=== PATIENT | male | born 1980 | race Caucasian/White ===

== ENCOUNTER 2018-12-21 22:18 | Observation (INO) | payer MEDICAID, SELFPAY ==
[2018-12-21 22:19] VITALS: BP 153/92; PULSE 79; RESP 16; TEMP 36.6; O2SAT 96; BMI 35.2
--- NOTE | 2018-12-21 22:27 | ED.VIS.GEN ---
History of Present Illness Chief Complaint: Substance Abuse Narrative: Patient presents with detox request. He stated that they are waiting for him to come. His last use of heroin was 30 hours ago. He also did methamphetamines 2 days ago. Patient feels like he is having some detox symptoms. He is having chills myalgia nausea and insomnia. He stated that they know about him. He has done this before. Current severity is moderate. Past Medical History - Allergies and Home Meds Allergies/Adverse Reactions: Allergies No Known Allergies Allergy (Verified 12/21/18 22:21) Prior records reviewed: Yes Past Medical History: - - Neuropathy, heroin abuse Lives: Spouse/ Significant Other Alcohol: None Drugs: None Review of Systems General: Denies: Chills, Fever, Sweats Eyes: Denies: Visual changes - bilaterally, Diplopia ENT: Denies: Rhinorrhea, Sore throat Cardiovascular: Denies: Chest pain, Palpitations Respiratory: Denies: Dyspnea, Cough, Dyspnea on exertion Gastrointestinal: Reports: Nausea. Denies: Abdominal pain, Vomiting, Diarrhea, Melena, Hematochezia Genitourinary: Denies: Dysuria, Hematuria, Frequency Musculoskeletal: Reports: Myalgias. Denies: Back pain, Extremity Pain Skin: Denies: Rash, Wounds Neurological: Denies: Headache, Weakness, Numbness Physical Exam Vital Signs/Narrative: Vital Signs Temp Pulse Resp BP Pulse Ox 12/21/18 22:19 97.8 F 79 16 153/92 H 96 General: Well nourished, Well developed, No Acute Distress Head: Normocephalic, Atraumatic Eyes: Perrl, EOMI ENT: Moist mucous membranes, No rhinorrhea Neck: Supple, Nontender Cardiovascular: Regular rate, Regular rhythm, No murmurs Respiratory: No distress, CTA bilaterally, Chest nontender Abdomen: Soft, Nontender, Nondistended, Normal bowel sounds Back: Nontender, Normal Inspection Extremities: Nontender, No edema Skin: Normal color, No rash Neurological: Alert, Oriented x3, Cranial nerves II-XII grossly intact, Normal Strength, Normal Sensation Psychological: Normal affect, Normal Mood Diagnostic/Tx/Re-eval - Medical Decision Making Lab work obtained. Patient will be admitted for further evaluation and treatment of his heroin abuse. Lab work shows a very slightly elevated AST and ALT. Urine tox shows positive opiates and amphetamines. Patient will be admitted for heroin detox. ED Disposition - Plan for ED Patient: Disposition: Home or Assisted Living Diagnosis: Narcotic withdrawal
[2018-12-21 22:59] LABS: Absolute Lymphocyte Count 3.05 X10^3/ul (0.83-4.51); Basophil# 0.01 X10^3/uL; Basophil% 0.1 % (0-1); Eosinophil# 0.14 X10^3/uL; Eosinophils% 1.6 % (0-5); Hematocrit 44.7 % (40-54); Hemoglobin 15.2 g/dl (13.0-16.5); Lymphocyte # 3.05 X10^3/ul (4.0); Lymphocyte % 34.7 % (19-41); Mean Corpuscular Hgb 28.7 pg (27.0-32.0); Mean Corpuscular Volume 84.3 fL (80-94); Mean Platelet Vol. 9.8 fl (6.2-12.0); Monocyte# 0.56 X10^3/uL; Monocyte% 6.4 % (0-10); Neutrophil # 5.03 X10^3/uL (2.7-7.7); Neutrophil % 57.1 % (47-70); Platelet Count 229 K/mm3 (150-450); RBC Distribution Width CV 12.9 % (11.6-14.6); RBC Distribution Width SD 39.3 fl (35.1-43.9); White Blood Count 8.8 K/mm3 (4.4-11.0)
[2018-12-21 23:00] LABS: POSITIVE COUNT NO; POSITIVE DIFFERENTIAL NO; POSITIVE MORPHOLOGY NO
[2018-12-21 23:14] LABS: Amphetamine Urine VISTA POSITIVE (<1000 ng/mL); Barbiturate Urine VISTA NEGATIVE (< 200 ng/mL); Benzodiazepine Urine VISTA NEGATIVE (< 200 ng/mL); Cocaine Urine VISTA NEGATIVE (< 300 ng/mL); Ecstacy Urine VISTA NEGATIVE (< 500 ng/mL); Methadone Urine VISTA NEGATIVE (< 300 ng/mL); PCP Urine VISTA NEGATIVE (< 25 ng/mL); THC Urine VISTA NEGATIVE (< 50 ng/mL); Vista UDS pH Range 6
[2018-12-21 23:15] LABS: AST(SGOT) 40 U/L (15-37); Alanine Aminotransfer ALT/SGPT 66 U/L (16-61); Albumin, Serum 3.7 g/dL (3.2-5.0); Alkaline Phosphatase 68 U/L (45-117); Anion Gap 4 (5-15); BUN 12 mg/dL (7-18); BUN/Creat Ratio 18.2 RATIO (10-20); Calcium,Total 8.4 mg/dL (8.5-10.1); Chloride 106 mmol/L (98-107); Creatinine, Serum 0.66 mg/dL (0.70-1.30); EST Glomerular Filtration Rate 143 mL/min (>60); Est Glom Filt Rate - Afr Amer 173 mL/min (>60); Estimated Creatinine Clearance 166.57 ml/min; Globulin 3.8 g/dL (2.2-4.2); Glucose 84 mg/dL (74-106); Potassium 3.8 mmol/L (3.5-5.1); Protein, Total 7.5 g/dL (6.4-8.2); Sodium Level 138 mmol/L (136-145)
[2018-12-21 23:30] LABS: Alcohol, Blood (Medical)-Serum < 3.0 mg/dL
--- NOTE | 2018-12-21 23:49 | HP.PCM_ITS ---
Problem List (1) Amphetamine abuse Status: Acute (2) Nicotine abuse Status: Chronic (3) Narcotic withdrawal Status: Acute History of Present Illness Date of Admission: 12/21/18 Chief Complaint: narcotic withdrawal The patient is a 38 year old male patient with a addiction to heroine presents to the ER requesting detoxification and assistance. He states he doesn't want to live like this any more. He has been through other detoxification programs previously , 1 month ago he resumed using heroine after not gaining admission to another detox program in [place]. He admits his last opiate use was yesterday afternoon and states he used meth 3 days ago. He smokes 1/2 PPD cigarettes and is requesting a nicotine patch. He is currently scoring a 17 on the CIWA score. Transaminases are slightly elevated but otherwise labs are unremarkable. He will be admitted for withdrawal symptoms and new vision consulted in am. Past Medical History Past Medical History (Chronic Problems): Chronic Problems Nicotine abuse (Chronic) Allergies No Known Allergies Allergy (Verified 12/21/18 22:21) Home Medications: Ambulatory Orders Medication Instructions Recorded Gabapentin [Neurontin] 600 mg PO TID 12/21/18 Surgical History: no surgical history Lives: Spouse/ Significant Other Smoking Status: Current every day smoker Alcohol: None Drugs: Heroin, - - amphetamine Review of Systems Constitutional: Denies: Chills, Fever, Weight Change HEENT: Denies: Head Aches, Sinus Congestion, Sinus Drainage Cardiovascular: Denies: Chest Pain, Palpitations Respiratory: Reports: Wheezing. Denies: Cough, Shortness of breath at rest, Sputum production Gastrointestinal: Denies: Abdominal Pain, Nausea, Vomiting Genitourinary: Denies: Dysuria Musculoskeletal: Denies: Joint Pain, Joint Tenderness Skin: Denies: Rash, Wounds Neurological: Reports: Tremor, - - psychmotor agitation. Denies: Focal weakne ss, Numbness, Tingling Psychiatric: Reports: Anxiety. Denies: Depression, Homicidal Ideations, Suicidal Ideations Hematologic/ Lymphatic: Denies: Easy Bruising, Easy Bleeding VTE Information - Inpt Only VTE Present on Admission: No VTE Mechan Device Prophylaxis: SCD's VTE Pharm Prophylaxis ordered?: No Patient Problems: Active and Suspected Problems Narcotic withdrawal (Acute) Amphetamine abuse (Acute) - Physical Exam General: Alert, Oriented x3, Cooperative HEENT: Atraumatic, Normocephalic Neck: Supple Lungs: Normal air movement, Wheezes Cardiovascular: Regular rate, Normal S1, Normal S2, No murmurs Abdomen: Bowel Sounds Present, Soft, Non Tender, Obese Extremities: No edema Skin: No rashes, No breakdown Musculoskeletal: No Tenderness to Palpation of Joints or Extremities Neurological: Neuro grossly intact Psych/Mental Status: Agitated, Anxious, Impulsive Vital Signs Temp Pulse Resp BP Pulse Ox 97.8 F 79 16 153/92 H 96 12/21/18 22:19 12/21/18 22:19 12/21/18 22:19 12/21/18 22:19 12/21/18 22:19 Oxygen Delivery Method Room Air Weight: 259 lb 11.272 oz Body Mass Index (BMI) 35.2 Laboratory Tests Past 24 Hrs 12/21/18 12/21/18 12/21/18 22:45 22:45 22:45 WBC 8.8 RBC 5.30 Hgb 15.2 Hct 44.7 MCV 84.3 MCH 28.7 MCHC 34.0 RDW 12.9 RDW Differential 39.3 Plt Count 229 MPV 9.8 Immature Gran % (Auto) 0.100 Neut % (Auto) 57.1 Lymph % (Auto) 34.7 [place] % (Auto) 6.4 Eos % (Auto) 1.6 Baso % (Auto) 0.1 Absolute Neuts (auto) 5.0 Absolute Lymphs (auto) 3.05 Total Counted Not Reportable Sodium 138 Potassium 3.8 Chloride 106 Carbon Dioxide 28.0 Anion Gap 4 L BUN 12 Creatinine 0.66 L Estim Creat Clear Calc 166.57 Est GFR (MDRD) Af Amer 173 Est GFR (MDRD) Non-Af 143 BUN/Creatinine Ratio 18.2 Glucose 84 Calcium 8.4 L Total Bilirubin 0.40 AST 40 H ALT 66 H Alkaline Phosphatase 68 Total Protein 7.5 Albumin 3.7 Globulin 3.8 Albumin/Globulin Ratio 1.0 Urine Opiates Screen Urine Methadone Screen Ur Barbiturates Screen Ur Phencyclidine Scrn Ur Amphetamines Screen U Methamphetamin-MDMA U Benzodiazepines Scrn Urine Cocaine Screen U Cannabinoids Screen Ur Drug Screen Comment Ethyl Alcohol < 3.0 12/21/18 22:45 WBC RBC Hgb Hct MCV MCH MCHC RDW RDW Differential Plt Count MPV Immature Gran % (Auto) Neut % (Auto) Lymph % (Auto) [place] % (Auto) Eos % (Auto) Baso % (Auto) Absolute Neuts (auto) Absolute Lymphs (auto) Total Counted Sodium Potassium Chloride Carbon Dioxide Anion Gap BUN Creatinine Estim Creat Clear Calc Est GFR (MDRD) Af Amer Est GFR (MDRD) Non-Af BUN/Creatinine Ratio Glucose Calcium Total Bilirubin AST ALT Alkaline Phosphatase Total Protein Albumin Globulin Albumin/Globulin Ratio Urine Opiates Screen POSITIVE H Urine Methadone Screen NEGATIVE Ur Barbiturates Screen NEGATIVE Ur Phencyclidine Scrn NEGATIVE Ur Amphetamines Screen POSITIVE H U Methamphetamin-MDMA NEGATIVE U Benzodiazepines Scrn NEGATIVE Urine Cocaine Screen NEGATIVE U Cannabinoids Screen NEGATIVE Ur Drug Screen Comment Ethyl Alcohol Assessment/Plan All Active Problems Narcotic withdrawal (Acute) Amphetamine abuse (Acute) Chronic Problems Nicotine abuse (Chronic) Plan 1. Heroine/amphetamine- abuse/withdrawal- admit to general medical floor. Initiate opiate withdrawal protocol, consult new vision in am 2. nicotine addiction-- 21mg NicoDerm patch q day 3. DVT prophylaxis-- SCDs Code Visit Inpatient E&M: 55725 Init Hosp L3
[2018-12-22] VITALS (8 sets, daily range): BP systolic 104–147; BP diastolic 62–92; PULSE 61–72; RESP 16–18; TEMP 36.4–36.8; O2SAT 97; BMI 34.9; BMI 35.0
[2018-12-22] MEDS: Buprenorphine HCl 2 MG TAB.SUBL SL ×3 (00:57→15:52)
[2018-12-22] MEDS: Pramipexole Di-HCl 0.25 MG Tablet PO (00:57)
[2018-12-22] MEDS: chlordiazePOXIDE 25 MG Capsule PO ×6 (00:57→20:13)
[2018-12-22] MEDS: cloNIDine HCl 0.1 MG Tablet PO ×3 (04:20→15:52)
[2018-12-22] MEDS: hydrOXYzine PAM 25 MG Capsule 50 MG PO ×2 (08:34→15:52)
[2018-12-22] MEDS: Methocarbamol 750 MG Tablet PO ×2 (08:34→15:52)
[2018-12-22] MEDS: Dicyclomine 10 MG Capsule 20 MG PO ×2 (08:34→15:52)
--- NOTE | 2018-12-22 10:53 | PCM.PN.HOSP ---
Patient Problems: Active and Suspected Problems Narcotic withdrawal (Acute) Amphetamine abuse (Acute) Subjective: Patient seen and examined. He was admitted for acute opiate withdrawal. He complains of abdominal pain due to cramping but denies any fever chills, palpitations or dizziness or tremors, diarrhea vomiting. Review of systems otherwise negative. Labs and vitals reviewed. Vitals/I&O's: Vital Signs Temp Pulse Resp BP Pulse Ox 97.6 F L 65 18 136/87 H 97 12/22/18 08:32 12/22/18 08:38 12/22/18 08:32 12/22/18 08:32 12/22/18 00:36 Oxygen Delivery Method Room Air Weight: 257 lb 15.053 oz Body Mass Index (BMI) 34.9 Intake and Output for Last 24 Hours 12/20/18 12/21/18 12/22/18 23:59 23:59 23:59 Intake Total 480 / 480 Balance 480 / 480 General: Alert, Oriented x3, Cooperative, No apparent distress HEENT: Atraumatic, PERRLA, EOMI, Normocephalic Oral: Moist Mucosa Neck: Supple, No JVD, Negative Carotid Bruits Lungs: Clear to auscultation, Normal air movement, No rhonchi, No wheeze, No rales Cardiovascular: Regular rate, Regular Rhythm, Normal S1, Normal S2, No murmurs Abdomen: Bowel Sounds Present, Soft, Non Tender, Non-Distended, No Hepato-splenomegaly Extremities: No clubbing, No cyanosis, No edema, Capillary Refill Less than 3 Seconds Skin: No rashes, No breakdown Musculoskeletal: No Tenderness to Palpation of Joints or Extremities Lymphatic: No Cervical, Supraclavicular, or Inguinal Adenopathy Neurological: Cranial nerves II-XII grossly intact, Neuro grossly intact, Motor Exam 5/5 strength throughout Psych/Mental Status: Normal Affect, Appropriate, Alert and oriented to time, place, person, mood and affect Laboratory Results 12/21/18 22:45: WBC 8.8, RBC 5.30, Hgb 15.2, Hct 44.7, MCV 84.3, MCH 28.7, MCHC 34.0, RDW 12.9, RDW Differential 39.3, Plt Count 229, MPV 9.8, Immature Gran % (Auto) 0.100, Neut % (Auto) 57.1, Lymph % (Auto) 34.7, [place] % (Auto) 6.4, Eos % (Auto) 1.6, Baso % (Auto) 0.1, Absolute Neuts (auto) 5.0, Absolute Lymphs (auto) 3.05, Total Counted Not Reportable 12/21/18 22:45: Sodium 138, Potassium 3.8, Chloride 106, Carbon Dioxide 28.0, Anion Gap 4 L, BUN 12, Creatinine 0.66 L, Estim Creat Clear Calc 166.57, Est GFR (MDRD) Af Amer 173, Est GFR (MDRD) Non-Af 143, BUN/Creatinine Ratio 18.2, Glucose 84, Calcium 8.4 L, Total Bilirubin 0.40, AST 40 H, ALT 66 H, Alkaline Phosphatase 68, Total Protein 7.5, Albumin 3.7, Globulin 3.8, Albumin/Globulin Ratio 1.0 12/21/18 22:45: Ethyl Alcohol < 3.0 12/21/18 22:45: Urine Opiates Screen POSITIVE H, Urine Methadone Screen NEGATIVE, Ur Barbiturates Screen NEGATIVE, Ur Phencyclidine Scrn NEGATIVE, Ur Amphetamines Screen POSITIVE H, U Methamphetamin-MDMA NEGATIVE, U Benzodiazepines Scrn NEGATIVE, Urine Cocaine Screen NEGATIVE, U Cannabinoids Screen NEGATIVE, Ur Drug Screen Comment Current Medications Buprenorphine HCl (Buprenorphine Hcl) 4 mg SL Q8H [facility]; Taper Stop: 12/25/18 04:16 Last Admin: 12/22/18 08:33 Dose: 4 mg Chlordiazepoxide (Librium) 25 mg PO Q6H PRN PRN PRN Reason: Moderate-Severe Anxiety Chlordiazepoxide (Librium) 25 mg PO Q4H [facility] Stop: 12/22/18 20:18 Last Admin: 12/22/18 08:34 Dose: 25 mg Clonidine (Catapres) 0.1 mg PO Q2H PRN PRN PRN Reason: Hot/Cold Sweats or Anxiety Last Admin: 12/22/18 08:35 Dose: 0.1 mg Dicyclomine HCl (Bentyl) 20 mg PO Q6H PRN PRN PRN Reason: Abdomnial Discomfort Last Admin: 12/22/18 08:34 Dose: 20 mg Hydroxyzine HCl (Vistaril Vial) 50 mg IM Q6H PRN PRN PRN Reason: Breakthrough Anxiety Hydroxyzine Pamoate (Vistaril Pamoate Capsule) 50 mg PO Q6H PRN PRN PRN Reason: Mild Anxiety Last Admin: 12/22/18 08:34 Dose: 50 mg Magnesium Hydroxide (Milk Of Magnesia) 30 ml PO DAILY PRN PRN PRN Reason: Constipation Methocarbamol (Methocarbamol) 750 mg PO Q6H PRN PRN PRN Reason: Muscle Aches Last Admin: 12/22/18 08:34 Dose: 750 mg Pramipexole Dihydrochloride (Mirapex) 0.25 mg PO Q12H PRN PRN PRN Reason: Restless Legs Last Admin: 12/22/18 00:57 Dose: 0.25 mg Medical Necessity - Tobacco Use Smoking Status: Current every day smoker Assessment/Plan All Active Problems Narcotic withdrawal (Acute) Amphetamine abuse (Acute) 1. Acute opiate withdrawal on opiate withdrawal protocol with buprenorphine, per [facility] protocol will monitor CINA score NEw vision on board; patient wishes to go to inpatient rehab facility once acute detox is over 2. Nicotine addiction: on nicotine patch 21mg daily. DVT prophylaxis; SCDs Code Visit Inpatient E&M: 00185 Subs Hosp L2
--- NOTE | 2018-12-22 10:58 | PN_ITS ---
Patient Problems: Active and Suspected Problems Narcotic withdrawal (Acute) Amphetamine abuse (Acute) Subjective: Patient seen and examined. He was admitted for acute opiate withdrawal. He complains of abdominal pain due to cramping but denies any fever chills, palpitations or dizziness or tremors, diarrhea vomiting. Review of systems otherwise negative. Labs and vitals reviewed. Vitals/I&O's: Vital Signs Temp Pulse Resp BP Pulse Ox 97.6 F L 65 18 136/87 H 97 12/22/18 08:32 12/22/18 08:38 12/22/18 08:32 12/22/18 08:32 12/22/18 00:36 Oxygen Delivery Method Room Air Weight: 257 lb 15.053 oz Body Mass Index (BMI) 34.9 Intake and Output for Last 24 Hours 12/20/18 12/21/18 12/22/18 23:59 23:59 23:59 Intake Total 480 / 480 Balance 480 / 480 General: Alert, Oriented x3, Cooperative, No apparent distress HEENT: Atraumatic, PERRLA, EOMI, Normocephalic Oral: Moist Mucosa Neck: Supple, No JVD, Negative Carotid Bruits Lungs: Clear to auscultation, Normal air movement, No rhonchi, No wheeze, No rales Cardiovascular: Regular rate, Regular Rhythm, Normal S1, Normal S2, No murmurs Abdomen: Bowel Sounds Present, Soft, Non Tender, Non-Distended, No Hepato- splenomegaly Extremities: No clubbing, No cyanosis, No edema, Capillary Refill Less than 3 Seconds Skin: No rashes, No breakdown Musculoskeletal: No Tenderness to Palpation of Joints or Extremities Lymphatic: No Cervical, Supraclavicular, or Inguinal Adenopathy Neurological: Cranial nerves II-XII grossly intact, Neuro grossly intact, Motor Exam 5/5 strength throughout Psych/Mental Status: Normal Affect, Appropriate, Alert and oriented to time, place, person, mood and affect Laboratory Results 12/21/18 22:45: WBC 8.8, RBC 5.30, Hgb 15.2, Hct 44.7, MCV 84.3, MCH 28.7, MCHC 34.0, RDW 12.9, RDW Differential 39.3, Plt Count 229, MPV 9.8, Immature Gran % (Auto) 0.100, Neut % (Auto) 57.1, Lymph % (Auto) 34.7, [place] % (Auto) 6.4, Eos % (Auto) 1.6, Baso % (Auto) 0.1, Absolute Neuts (auto) 5.0, Absolute Lymphs (auto) 3.05, Total Counted Not Reportable 12/21/18 22:45: Sodium 138, Potassium 3.8, Chloride 106, Carbon Dioxide 28.0, Anion Gap 4 L, BUN 12, Creatinine 0.66 L, Estim Creat Clear Calc 166.57, Est GFR (MDRD) Af Amer 173, Est GFR (MDRD) Non-Af 143, BUN/Creatinine Ratio 18.2, Glucose 84, Calcium 8.4 L, Total Bilirubin 0.40, AST 40 H, ALT 66 H, Alkaline Phosphatase 68, Total Protein 7.5, Albumin 3.7, Globulin 3.8, Albumin/Globulin Ratio 1.0 12/21/18 22:45: Ethyl Alcohol < 3.0 12/21/18 22:45: Urine Opiates Screen POSITIVE H, Urine Methadone Screen NEGATIVE, Ur Barbiturates Screen NEGATIVE, Ur Phencyclidine Scrn NEGATIVE, Ur Amphetamines Screen POSITIVE H, U Methamphetamin-MDMA NEGATIVE, U Benzodiazepines Scrn NEGATIVE, Urine Cocaine Screen NEGATIVE, U Cannabinoids Screen NEGATIVE, Ur Drug Screen Comment Current Medications Buprenorphine HCl (Buprenorphine Hcl) 4 mg SL Q8H [facility]; Taper Stop: 12/25/18 04:16 Last Admin: 12/22/18 08:33 Dose: 4 mg Chlordiazepoxide (Librium) 25 mg PO Q6H PRN PRN PRN Reason: Moderate-Severe Anxiety Chlordiazepoxide (Librium) 25 mg PO Q4H [facility] Stop: 12/22/18 20:18 Last Admin: 12/22/18 08:34 Dose: 25 mg Clonidine (Catapres) 0.1 mg PO Q2H PRN PRN PRN Reason: Hot/Cold Sweats or Anxiety Last Admin: 12/22/18 08:35 Dose: 0.1 mg Dicyclomine HCl (Bentyl) 20 mg PO Q6H PRN PRN PRN Reason: Abdomnial Discomfort Last Admin: 12/22/18 08:34 Dose: 20 mg Hydroxyzine HCl (Vistaril Vial) 50 mg IM Q6H PRN PRN PRN Reason: Breakthrough Anxiety Hydroxyzine Pamoate (Vistaril Pamoate Capsule) 50 mg PO Q6H PRN PRN PRN Reason: Mild Anxiety Last Admin: 12/22/18 08:34 Dose: 50 mg Magnesium Hydroxide (Milk Of Magnesia) 30 ml PO DAILY PRN PRN PRN Reason: Constipation Methocarbamol (Methocarbamol) 750 mg PO Q6H PRN PRN PRN Reason: Muscle Aches Last Admin: 12/22/18 08:34 Dose: 750 mg Pramipexole Dihydrochloride (Mirapex) 0.25 mg PO Q12H PRN PRN PRN Reason: Restless Legs Last Admin: 12/22/18 00:57 Dose: 0.25 mg Medical Necessity - Tobacco Use Smoking Status: Current every day smoker Assessment/Plan All Active Problems Narcotic withdrawal (Acute) Amphetamine abuse (Acute) 1. Acute opiate withdrawal * on opiate withdrawal protocol with buprenorphine, per [facility] protocol * will monitor CINA score * NEw vision on board; patient wishes to go to inpatient rehab facility once acute detox is over * 2. Nicotine addiction: on nicotine patch 21mg daily. DVT prophylaxis; SCDs Code Visit Inpatient E&M: 16857 Subs Hosp L2
[2018-12-23] MEDS: Buprenorphine HCl 2 MG TAB.SUBL SL ×3 (00:05→15:59)
[2018-12-23 00:06] VITALS: BP 133/82; PULSE 70; RESP 16; TEMP 36.4
[2018-12-23 00:08] VITALS: BP 133/82; PULSE 67; RESP 16; TEMP 36.4; O2SAT 98
[2018-12-23 06:02] VITALS: BP 118/80; PULSE 60; RESP 14; TEMP 37.1; O2SAT 100
[2018-12-23 08:11] VITALS: BP 150/99; PULSE 58; RESP 18; TEMP 36.8
--- NOTE | 2018-12-23 10:20 | NEWVISION ---
Patient has follow up appointment on 12-25-18 at [facility] at 2pm. Patient is on waitlist for their residential treatment program, [facility] but may continue outpatient treatment until there is an opening. TB test results to be faxed to [facility] [phone] attention Rosario Alvarez and Maddy Cortés.
--- NOTE | 2018-12-23 10:30 | PCM.PN.HOSP ---
Patient Problems: Active and Suspected Problems Narcotic withdrawal (Acute) Amphetamine abuse (Acute) Subjective: Patient seen and examined. He had an uneventful night and has no complaints. Review of systems otherwise negative. Labs and vitals reviewed. He is due to be discharged to rehab facility tomorrow and they are requesting a TB test. Mantoux test ordered. Vitals/I&O's: Vital Signs Temp Pulse Resp BP Pulse Ox 98.3 F 58 L 18 150/99 H 100 12/23/18 08:11 12/23/18 08:11 12/23/18 08:11 12/23/18 08:11 12/23/18 06:02 Oxygen Delivery Method Room Air Weight: 257 lb 15.053 oz Body Mass Index (BMI) 34.9 Intake and Output for Last 24 Hours 12/21/18 12/22/18 12/23/18 23:59 23:59 23:59 Intake Total 680 / 680 900 / 900 Balance 680 / 680 900 / 900 General: Alert, Oriented x3, Cooperative, No apparent distress HEENT: Atraumatic, PERRLA, EOMI, Normocephalic Oral: Moist Mucosa Neck: Supple, No JVD, Negative Carotid Bruits Lungs: Clear to auscultation, Normal air movement, No rhonchi, No wheeze, No rales Cardiovascular: Regular rate, Regular Rhythm, Normal S1, Normal S2, No murmurs Abdomen: Bowel Sounds Present, Soft, Non Tender, Non-Distended, No Hepato-splenomegaly Extremities: No clubbing, No cyanosis, No edema, Capillary Refill Less than 3 Seconds Skin: No rashes, No breakdown Musculoskeletal: No Tenderness to Palpation of Joints or Extremities Lymphatic: No Cervical, Supraclavicular, or Inguinal Adenopathy Neurological: Cranial nerves II-XII grossly intact, Neuro grossly intact, Motor Exam 5/5 strength throughout Psych/Mental Status: Normal Affect, Appropriate, Alert and oriented to time, place, person, mood and affect Current Medications Buprenorphine HCl (Buprenorphine Hcl) 2 mg SL Q8H [facility]; Taper Stop: 12/25/18 04:16 Last Admin: 12/23/18 08:13 Dose: 2 mg Chlordiazepoxide (Librium) 25 mg PO Q6H PRN PRN PRN Reason: Moderate-Severe Anxiety Clonidine (Catapres) 0.1 mg PO Q2H PRN PRN PRN Reason: Hot/Cold Sweats or Anxiety Last Admin: 12/22/18 15:52 Dose: 0.1 mg Dicyclomine HCl (Bentyl) 20 mg PO Q6H PRN PRN PRN Reason: Abdomnial Discomfort Last Admin: 12/22/18 15:52 Dose: 20 mg Hydroxyzine HCl (Vistaril Vial) 50 mg IM Q6H PRN PRN PRN Reason: Breakthrough Anxiety Hydroxyzine Pamoate (Vistaril Pamoate Capsule) 50 mg PO Q6H PRN PRN PRN Reason: Mild Anxiety Last Admin: 12/22/18 15:52 Dose: 50 mg Magnesium Hydroxide (Milk Of Magnesia) 30 ml PO DAILY PRN PRN PRN Reason: Constipation Methocarbamol (Methocarbamol) 750 mg PO Q6H PRN PRN PRN Reason: Muscle Aches Last Admin: 12/22/18 15:52 Dose: 750 mg Pramipexole Dihydrochloride (Mirapex) 0.25 mg PO Q12H PRN PRN PRN Reason: Restless Legs Last Admin: 12/22/18 00:57 Dose: 0.25 mg Medical Necessity - Tobacco Use Smoking Status: Current every day smoker Assessment/Plan All Active Problems Narcotic withdrawal (Acute) Amphetamine abuse (Acute) 1. Acute opiate withdrawal on opiate withdrawal protocol with buprenorphine, per [facility] protocol will monitor CINA score NEw vision on board;to be discharged to an inpatient rehab facility tomorrow; facility needs Mantoux test for TB before patient can be admitted there- test ordered 2. Nicotine addiction: on nicotine patch 21mg daily. DVT prophylaxis; SCDs Code Visit Inpatient E&M: 50221 Subs Hosp L2
--- NOTE | 2018-12-23 10:37 | PN_ITS ---
Patient Problems: Active and Suspected Problems Narcotic withdrawal (Acute) Amphetamine abuse (Acute) Subjective: Patient seen and examined. He had an uneventful night and has no complaints. Review of systems otherwise negative. Labs and vitals reviewed. He is due to be discharged to rehab facility tomorrow and they are requesting a TB test. Mantoux test ordered. Vitals/I&O's: Vital Signs Temp Pulse Resp BP Pulse Ox 98.3 F 58 L 18 150/99 H 100 12/23/18 08:11 12/23/18 08:11 12/23/18 08:11 12/23/18 08:11 12/23/18 06:02 Oxygen Delivery Method Room Air Weight: 257 lb 15.053 oz Body Mass Index (BMI) 34.9 Intake and Output for Last 24 Hours 12/21/18 12/22/18 12/23/18 23:59 23:59 23:59 Intake Total 680 / 680 900 / 900 Balance 680 / 680 900 / 900 General: Alert, Oriented x3, Cooperative, No apparent distress HEENT: Atraumatic, PERRLA, EOMI, Normocephalic Oral: Moist Mucosa Neck: Supple, No JVD, Negative Carotid Bruits Lungs: Clear to auscultation, Normal air movement, No rhonchi, No wheeze, No rales Cardiovascular: Regular rate, Regular Rhythm, Normal S1, Normal S2, No murmurs Abdomen: Bowel Sounds Present, Soft, Non Tender, Non-Distended, No Hepato- splenomegaly Extremities: No clubbing, No cyanosis, No edema, Capillary Refill Less than 3 Seconds Skin: No rashes, No breakdown Musculoskeletal: No Tenderness to Palpation of Joints or Extremities Lymphatic: No Cervical, Supraclavicular, or Inguinal Adenopathy Neurological: Cranial nerves II-XII grossly intact, Neuro grossly intact, Motor Exam 5/5 strength throughout Psych/Mental Status: Normal Affect, Appropriate, Alert and oriented to time, place, person, mood and affect Current Medications Buprenorphine HCl (Buprenorphine Hcl) 2 mg SL Q8H [facility]; Taper Stop: 12/25/18 04:16 Last Admin: 12/23/18 08:13 Dose: 2 mg Chlordiazepoxide (Librium) 25 mg PO Q6H PRN PRN PRN Reason: Moderate-Severe Anxiety Clonidine (Catapres) 0.1 mg PO Q2H PRN PRN PRN Reason: Hot/Cold Sweats or Anxiety Last Admin: 12/22/18 15:52 Dose: 0.1 mg Dicyclomine HCl (Bentyl) 20 mg PO Q6H PRN PRN PRN Reason: Abdomnial Discomfort Last Admin: 12/22/18 15:52 Dose: 20 mg Hydroxyzine HCl (Vistaril Vial) 50 mg IM Q6H PRN PRN PRN Reason: Breakthrough Anxiety Hydroxyzine Pamoate (Vistaril Pamoate Capsule) 50 mg PO Q6H PRN PRN PRN Reason: Mild Anxiety Last Admin: 12/22/18 15:52 Dose: 50 mg Magnesium Hydroxide (Milk Of Magnesia) 30 ml PO DAILY PRN PRN PRN Reason: Constipation Methocarbamol (Methocarbamol) 750 mg PO Q6H PRN PRN PRN Reason: Muscle Aches Last Admin: 12/22/18 15:52 Dose: 750 mg Pramipexole Dihydrochloride (Mirapex) 0.25 mg PO Q12H PRN PRN PRN Reason: Restless Legs Last Admin: 12/22/18 00:57 Dose: 0.25 mg Medical Necessity - Tobacco Use Smoking Status: Current every day smoker Assessment/Plan All Active Problems Narcotic withdrawal (Acute) Amphetamine abuse (Acute) 1. Acute opiate withdrawal * on opiate withdrawal protocol with buprenorphine, per [facility] protocol * will monitor CINA score * NEw vision on board;to be discharged to an inpatient rehab facility tomorrow; facility needs Mantoux test for TB before patient can be admitted there- test ordered * 2. Nicotine addiction: on nicotine patch 21mg daily. DVT prophylaxis; SCDs Code Visit Inpatient E&M: 62219 Subs Hosp L2
[2018-12-23] MEDS: Tuberculin,Purif.prot.deriv. 50 TU/ML Vial 5 ML ID (14:14)
[2018-12-23 14:15] VITALS: BP 137/84; PULSE 74; RESP 18; TEMP 36.9
--- NOTE | 2018-12-23 14:53 | NURSING ---
Pt caught off of floor, left floor to smoker cigarette educated that he can not leave the floor and if he left again he would be discharged
[2018-12-23 21:20] VITALS: BP 121/79; PULSE 72; RESP 16; TEMP 36.6
[2018-12-23] MEDS: Gabapentin 600 MG Tablet PO (21:26)
[2018-12-23] MEDS: cloNIDine HCl 0.1 MG Tablet PO (21:26)
[2018-12-23] MEDS: hydrOXYzine PAM 25 MG Capsule 50 MG PO (21:55)
[2018-12-24] MEDS: Buprenorphine HCl 2 MG TAB.SUBL SL (05:08)
[2018-12-24] MEDS: Gabapentin 600 MG Tablet PO (05:08)
[2018-12-24 05:10] VITALS: BP 120/82; PULSE 59; RESP 16; TEMP 36.4
[2018-12-24 09:23] VITALS: BP 130/84; PULSE 85; RESP 18; TEMP 37
--- NOTE | 2018-12-24 09:41 | PCM.DC ---
- Discharge Diagnoses Current Active Problems: Current Active and Chronic Problems Narcotic withdrawal (Acute) Amphetamine abuse (Acute) Nicotine abuse (Chronic) You will use the following diet at home:: No restrictions Your food should be the consistency of: Regular Your liquids should be the consistency of: Regular/Thin Discharge Activity: Return to Normal Activity Weight Bearing Status: Weight bearing as tolerated Call your doctor if you observe: Fever of 101 or Higher, Shortness of breath Instructions: ED Withdrawal Narcotic, ED Narcotic Abuse Additional Instructions: Tuberculin skin test to be read on Friday12/25/18. Patient can come to [facility] ED for the reading Allergies/Adverse Reactions: Allergies No Known Allergies Allergy (Verified 12/21/18 22:21) Medications to take at Discharge Gabapentin [Neurontin] 600 mg PO TID 12/21/18 Primary Care Physician: Care Physician,No Primary [Primary Care Provider] - Please follow up with your Primary Care Physician in: one week Test Results: Test results from this visit will be discussed in further detail at your follow-up appointment, if applicable. Please Follow Up With: Ollie Zhang MD - [phone] When: in one week to establish PCP relationship. Pls call office for appointment Proposed Discharge Date: 12/24/18
[2018-12-24 09:44] VITALS: BP 130/84; PULSE 85; RESP 18; TEMP 36.8; O2SAT 96
--- NOTE | 2018-12-24 09:45 | DCINST_ITS ---
- Discharge Diagnoses Current Active Problems: Current Active and Chronic Problems Narcotic withdrawal (Acute) Amphetamine abuse (Acute) Nicotine abuse (Chronic) You will use the following diet at home:: No restrictions Your food should be the consistency of: Regular Your liquids should be the consistency of: Regular/Thin Discharge Activity: Return to Normal Activity Weight Bearing Status: Weight bearing as tolerated Call your doctor if you observe: Fever of 101 or Higher, Shortness of breath Instructions: ED Withdrawal Narcotic, ED Narcotic Abuse Additional Instructions: Tuberculin skin test to be read on Friday12/25/18. Patient can come to [facility] ED for the reading Allergies/Adverse Reactions: Allergies No Known Allergies Allergy (Verified 12/21/18 22:21) Medications to take at Discharge Gabapentin [Neurontin] 600 mg PO TID 12/21/18 Primary Care Physician: Care Physician,No Primary [Primary Care Provider] - Please follow up with your Primary Care Physician in: one week Test Results: Test results from this visit will be discussed in further detail at your follow- up appointment, if applicable. Please Follow Up With: Ollie Zhang MD - [phone] When: in one week to establish PCP relationship. Pls call office for appointment Proposed Discharge Date: 12/24/18
--- NOTE | 2018-12-24 09:45 | PCM.DC.SUM ---
Discharge Date and Diagnosis Date of Admission: 12/21/18 Date of Discharge: 12/24/18 - Primary Discharge Diagnosis Active and Suspected Problems Narcotic withdrawal (Acute) Amphetamine abuse (Acute) - Secondary Discharge Diagnosis Chronic Problems Nicotine abuse (Chronic) Hospital Course and Treatment Operations: None Procedures: None Summary of Care Provided: The patient is a 38 year old M with a past medical history of heroin dependence. He was admitted through the ED for detoxification from opiates. His last opiate use was the day before admission and he had also used meth 3 days prior to admission. He also smoked half pack per day. On admission, CIWA score was 17 and alcohol level was slightly elevated. He was admitted and managed for acute opiate withdrawal and put on buprenorphine withdrawal protocol as per [facility] protocol. Labs done was essentially unremarkable but urine toxicology screen was positive for opiates and methamphetamines. Patient tolerated 3 days of detox and remained stable. He had a Mantoux test on 12/23/2018 at her apartment with skilled nursing placement. He is to hav a Mantoux test read on 12/26/2018. He is follow-up with his primary care doctor and has been discharged to a rehab facility. Patient seen and examined this morning. He had no complaints and felt well. Review of systems otherwise negative. Home medication reviewed on consult. o/e: Vital Signs Height 6 ft Weight: 257 lb 15.053 oz Weight in Pounds 257.9 lbs Pulse Ox 96 Temperature 98.2 F Pulse Rate 85 Respiratory Rate 18 Blood Pressure 130/84 Blood Pressure Position Semi-Fowlers [] General: Alert, Oriented x3, Cooperative, No apparent distress HEENT: Atraumatic, PERRLA, EOMI, Normocephalic Oral: Moist Mucosa Neck: Supple, No JVD, Negative Carotid Bruits Lungs: Clear to auscultation, Normal air movement, No rhonchi, No wheeze, No rales Cardiovascular: Regular rate, Regular Rhythm, Normal S1, Normal S2, No murmurs Abdomen: Bowel Sounds Present, Soft, Non Tender, Non-Distended, No Hepato-splenomegaly Extremities: No clubbing, No cyanosis, No edema, Capillary Refill Less than 3 Seconds Skin: No rashes, No breakdown Musculoskeletal: No Tenderness to Palpation of Joints or Extremities Lymphatic: No Cervical, Supraclavicular, or Inguinal Adenopathy Neurological: Cranial nerves II-XII grossly intact, Neuro grossly intact, Motor Exam 5/5 strength throughout Psych/Mental Status: Normal Affect, Appropriate, Alert and oriented to time, place, person, mood and affect Plan is to discharge patient to an inpatient rehab facility today. He is to follow-up with his primary care doctor. - Physical Exam Vital Signs Temp Pulse Resp BP Pulse Ox 98.6 F 85 18 130/84 H 100 12/24/18 09:23 12/24/18 09:23 12/24/18 09:23 12/24/18 09:23 12/23/18 06:02 Oxygen Delivery Method Room Air Weight: 257 lb 15.053 oz Body Mass Index (BMI) 34.9 Intake and Output for Last 24 Hours 12/22/18 12/23/18 12/24/18 23:59 23:59 23:59 Intake Total 680 / 680 1880 / 1880 500 / 500 Balance 680 / 680 1880 / 1880 500 / 500 Discharge Diet: No Restrictions Discharge Activity: Return to Normal Activity Weight Bearing Status: Weight bearing as tolerated Call your doctor if you observe: Fever of 101 or Higher, Shortness of breath Home Medications: Medications to take at Discharge Gabapentin [Neurontin] 600 mg PO TID 12/21/18 Primary Care Physician: Care Physician,No Primary [Primary Care Provider] - Please follow up with your Primary Care Physician in: one week Please Follow Up With: Ollie Zhang MD - [phone] When: in one week to establish PCP relationship. Pls call office for appointment Patient Instructions: ED Narcotic Abuse, ED Withdrawal Narcotic Disposition: Inpt Rehab Unit/Facility Minutes spent on discharge:: 35 Patient Condition:: Stable Medical Necessity - Tobacco Use Smoking Status: Current every day smoker Meaningful Use Info Meaningful Use Diagnoses (Choose all that apply): None applicable Code Visit Inpatient E&M: 27216 Disch Hosp
== END 2018-12-24 10:15 | disposition home or self-care (01) | DRG 773 ==
LOC: ED 23:21 → MS2 12-22 00:02
PROVIDERS: Admitting Provider Family Medicine; Emergency Provider Emergency Medicine; Visit Provider Student in an Organized Health Care Education/Training Program
DX: F11.23 Opioid dependence with withdrawal (principal); F17.210 Nicotine dependence, cigarettes, uncomplicated; F15.10 Other stimulant abuse, uncomplicated
CPT/HCPCS: 36415; 80053; 80307; 80320; 85025; 99218; 99281; G0378; G0480